=== PATIENT | female | born 1960 | race Caucasian/White ===

== ENCOUNTER 2019-02-26 13:04 | Emergency (ER) | payer OTHER ==
[~2019-02-26 13:04] MED LIST: LEVO500T89 PO; NAPR250T PO
[2019-02-26] MEDS ORDERED: ORPHENADRINE CITRATE 30 MG/ML ML ONE (13:22)
[2019-02-26] MEDS ORDERED: KETOROLAC TROMETHAMINE 15MG/ML ONE (13:23)
[2019-02-26 13:52] LABS: BASOPHILS % (AUTO) 2.7 % (0.0-5.0); EOSINOPHILS % (AUTO) 0.3 % (0.0-8.0); HEMATOCRIT 38.3 % (36-48); LYMPHOCYTES % (AUTO) 32.1 % (21.0-51.0); MEAN CORPUSCULAR HEMOGLOBIN 34.8 pg (27.0-33.0); MEAN CORPUSCULAR HGB CONC 35.2 g/dL (32.0-36.0); MONOCYTES % (AUTO) 10.7 % (3.0-13.0); NEUTROPHILS % (AUTO) 54.2 % (40.0-77.0); NUCLEATED RED BLOOD CELLS 0.1 % (0.0-0.19); PLATELET COUNT (AUTO) 77 K/uL (130-400); RED BLOOD CELL COUNT(AUTO) 3.87 MIL/uL (4.00-5.50); RED CELL DISTRIBUTION WIDTH 13.7 % (11.0-15.5)
[2019-02-26 14:00] LABS: CREATININE 0.6 mg/dL (0.5-1.5); POTASSIUM 3.5 mmol/L (3.5-5.1)
[2019-02-26 14:04] LABS: ALBUMIN 3.9 g/dL (3.5-5.0); BILIRUBIN,DIRECT 0.5 mg/dL (0.0-0.3); BILIRUBIN,TOTAL 1.3 mg/dL (0.2-1.0); TOTAL PROTEIN, SERUM 8.6 g/dL (6.0-8.3)
[2019-02-26 14:39] LABS: BAND NEUTROPHILS % (MANUAL) 1 % (0-2); BASOPHILS % (MANUAL) 2 % (0-2); LYMPHOCYTES % (MANUAL) 33 % (22-44); MAN.DIFF COMMENT-IMPRESSION MANUAL DIFFERENTIAL; MONOCYTES % (MANUAL) 13 % (2-9); PLATELET MORPHOLOGY COMMENT DECREASED; SEGMENTED NEUTROPHILS % 51 % (40-70)
== END 2019-02-26 15:28 | disposition home or self-care (01) ==
LOC: EDH 13:04
DX: M54.5 Low back pain (principal); I10 Essential (primary) hypertension; Z72.0 Tobacco use
CPT/HCPCS: 36415; 72131; 80048; 80076; 85025; 96374; 96375; 99285; J1885; J2360

== ENCOUNTER 2020-09-28 10:16 | Inpatient (IN) | payer OTHER ==
[~2020-09-28] VITALS: Ht 157.5 cm; Wt 51.3 kg
[~2020-09-28 10:16] MED LIST changes: -LEVO500T89 PO; +LEVO500T90 PO
[2020-09-28 10:54] LABS: BASOPHILS % (AUTO) 2.3 % (0.0-5.0); HEMATOCRIT 34.6 % (36-48); LYMPHOCYTES % (AUTO) 36.1 % (21.0-51.0); MEAN CORPUSCULAR HEMOGLOBIN 33.7 pg (27.0-33.0); MEAN CORPUSCULAR HGB CONC 34.1 g/dL (32.0-36.0); MEAN CORPUSCULAR VOLUME 98.9 fL (79-99); MONOCYTES % (AUTO) 11.6 % (3.0-13.0); NEUTROPHILS % (AUTO) 48.7 % (40.0-77.0); PLATELET COUNT (AUTO) 112 K/uL (130-400)
[2020-09-28 11:03] LABS: CREATININE 0.8 mg/dL (0.5-1.5); POTASSIUM 3.3 mmol/L (3.5-5.1)
[2020-09-28 11:12] LABS: ALBUMIN 2.9 g/dL (3.5-5.0); BILIRUBIN,TOTAL 4.6 mg/dL (0.2-1.0); TOTAL PROTEIN, SERUM 8.9 g/dL (6.0-8.3)
[2020-09-28 11:32] LABS: INR 1.4 (0.85-1.15); PROTHROMBIN TIME 14.8 SEC (9.6-11.6)
[2020-09-28 11:33] LABS: PARTIAL THROMBOPLASTIN TIME 31.4 SEC (26.3-35.5)
[2020-09-28] MEDS ORDERED: KETOROLAC 15MG/ML VIAL (15MG/ML) ONE (12:14)
[2020-09-28] MEDS ORDERED: IOHEXOL 350 MG/ML 100ML INFUS..BTL IV ONE (14:45)
[2020-09-28] MEDS ORDERED: IOHEXOL-350 50ML VIAL IV ONE (14:45)
[2020-09-28] MEDS ORDERED: PHARMACY COMMUNICATION MISC PRN (17:45)
[2020-09-28] MEDS ORDERED: CHLORDIAZEPOXIDE HCL 25 MG CAP PO PRN (17:45)
[2020-09-28] MEDS ORDERED: THIAMINE HCL 100 MG/ML 2ML VIAL IVP SCH (17:45)
[2020-09-28] MEDS ORDERED: FOLIC ACID 1 MG TABLET PO SCH (17:45)
[2020-09-28 18:25] LABS: ALCOHOL, BLOOD 130 mg/dL (0-10)
[2020-09-28 18:38] LABS: APPEARANCE,URINE SL CLOUDY (CLEAR); BILIRUBIN,URINE SMALL (NEGATIVE); COLOR,URINE YELLOW (YELLOW); GLUCOSE, URINE (UA) NEGATIVE (NEGATIVE); KETONES,URINE NEGATIVE (NEGATIVE); LEUKOCYTE ESTERASE ,URINE MODERATE (NEGATIVE); NITRATE,URINE NEGATIVE (NEGATIVE); OCCULT BLOOD,URINE SMALL (NEGATIVE); PROTEIN,URINE NEGATIVE (NEGATIVE)
[2020-09-28 18:46] LABS: AMPHET/METH SCREEN,URINE NEGATIVE (NEGATIVE); BACTERIA,URINE Moderate /HPF (None Seen); BARBITURATE SCREEN, URINE NEGATIVE (NEGATIVE); BENZODIAZEPINES SCREEN,URINE NEGATIVE (NEGATIVE); CANNABINOID SCREEN,URINE NEGATIVE (NEGATIVE); COCAINE SCREEN,URINE NEGATIVE (NEGATIVE); MUCUS,URINE Few LPF (None Seen); OPIATE SCREEN,URINE NEGATIVE (NEGATIVE); PHENCYCLIDINE SCREEN,URINE NEGATIVE (NEGATIVE); SQUAMOUS EPITHELIAL CELL,UR Few /HPF (0-2); URIC ACID CRYSTALS,URINE Few /LPF (None Seen)
[2020-09-28] MEDS: LACTATED RINGERS 1000ML 1,000 ML IV SCH (19:00)
[2020-09-28 19:08] LABS: ACETAMINOPHEN < 1 mcg/mL (10-30)
[2020-09-28] MEDS ORDERED: THIAMINE HCL 100 MG/ML 2ML VIAL ONE (19:23)
[2020-09-28] MEDS ORDERED: CEFTRIAXONE 1G VIAL ONE (19:23)
[2020-09-28] MEDS ORDERED: FOLIC ACID 1 MG TABLET ONE (19:23)
[2020-09-28] MEDS ORDERED: 0.9%NACL 50ML 50 ML IV ONE (19:24)
[2020-09-29 05:55] LABS: BASOPHILS % (AUTO) 1.3 % (0.0-5.0); EOSINOPHILS % (AUTO) 0.4 % (0.0-8.0); HEMATOCRIT 30.2 % (36-48); LYMPHOCYTES % (AUTO) 27.3 % (21.0-51.0); MEAN CORPUSCULAR HEMOGLOBIN 34.4 pg (27.0-33.0); MEAN CORPUSCULAR HGB CONC 34.8 g/dL (32.0-36.0); MONOCYTES % (AUTO) 13.8 % (3.0-13.0); PLATELET COUNT (AUTO) 92 K/uL (130-400); RED BLOOD CELL COUNT(AUTO) 3.05 MIL/uL (4.00-5.50); RED CELL DISTRIBUTION WIDTH 16.3 % (11.0-15.5); WHITE BLOOD COUNT (AUTO) 8.3 K/uL (4.8-10.8)
[2020-09-29 06:11] LABS: INR 1.46 (0.85-1.15); PROTHROMBIN TIME 15.4 SEC (9.6-11.6)
[2020-09-29 06:12] LABS: PARTIAL THROMBOPLASTIN TIME 33.7 SEC (26.3-35.5)
[2020-09-29 06:14] LABS: ALANINE AMINOTRANSFERASE 32 U/L (12-78); ALBUMIN 2.6 g/dL (3.5-5.0); ALCOHOL, BLOOD < 3 mg/dL (0-10); ASPARTATE AMINOTRANSFERASE 115 U/L (10-37); BILIRUBIN,TOTAL 5.2 mg/dL (0.2-1.0); CARBON DIOXIDE 24 mmol/L (21-32); CHLORIDE 101 mmol/L (101-111); CREATININE 1.6 mg/dL (0.5-1.5); GLOMERULAR FILTR. RATE CALC 35 mL/min (>60); GLUCOSE,RANDOM 85 mg/dL (70-105); POTASSIUM 3.6 mmol/L (3.5-5.1); SODIUM SERUM 135 mmol/L (136-145); TOTAL PROTEIN, SERUM 8.1 g/dL (6.0-8.3); UREA NITROGEN, BLOOD 6 mg/dL (7-18)
[2020-09-29] MEDS ORDERED: MULTIVITAMIN TABLET ONE (07:50)
[2020-09-29] MEDS ORDERED: THIAMINE HCL 100 MG/ML 2ML VIAL ONE (07:50)
[2020-09-29] MEDS ORDERED: FOLIC ACID 1 MG TABLET ONE (07:51)
[2020-09-29] MEDS: LACTATED RINGERS 1000ML 1,000 ML IV SCH ×2 (08:20→21:40)
[2020-09-29] MEDS: MULTIVITAMIN TABLET PO SCH (09:00)
[2020-09-29] MEDS: LACTULOSE 20 GM/30 ML UDCUP PO SCH ×2 (09:00→21:12)
[2020-09-29] MEDS: THIAMINE HCL 100 MG/ML 2ML VIAL IVP SCH (09:00)
[2020-09-29] MEDS: FOLIC ACID 1 MG TABLET PO SCH (09:00)
[2020-09-29] MEDS ORDERED: TRAMADOL HCL 50 MG TABLET ONE (09:05)
[2020-09-29] MEDS ORDERED: MAGNESIUM 2GM PREMIX 50ML 50 ML IV ONE (09:05)
[2020-09-29] MEDS ORDERED: LACTULOSE 20 GM/30 ML UDCUP ONE (09:05)
[2020-09-29] MEDS ORDERED: LACTATED RINGERS 1000ML 1,000 ML IV ONE (09:07)
[2020-09-29 13:33] LABS: ALBUMIN,BODY FLUID < 0.6 g/dL
[2020-09-29 13:38] LABS: CREATININE,URINE RANDOM 79 mg/dL (30-135); SODIUM,URINE RANDOM 92 mmol/l (40-220)
[2020-09-29 14:15] LABS: SPECIMENTYPE,BODY FLUID ASCITES
[2020-09-29 14:16] LABS: APPEARANCE BODY FLUID SLIGHTLY CLOUDY (CLEAR); COLOR,BODY FLUID YELLOW (LT YELLOW); TOTAL VOLUME,BODY FLUID 2500 mL
[2020-09-29 14:17] LABS: BODY FLUID RBC 182 /cu. mm.; BODY FLUID WBC 158 /cu. mm.
[2020-09-29 14:20] LABS: BF LYMPHOCYTE 35 %; BF MESOTHELIAL 2 %; BF MONOCYTE 45 %
[2020-09-29 17:45] VITALS: BP 102/67
[2020-09-29] MEDS: CEFTRIAXONE 1G VIAL IVP SCH (18:34)
[2020-09-29] MEDS: KCL 20 MEQ ERTAB PO SCH (18:35)
[2020-09-29] MEDS ORDERED: AMLO-258 PO (18:58)
[2020-09-29 19:50] VITALS: BP 110/55
[2020-09-29] MEDS: TRAMADOL HCL 50 MG TABLET PO PRN (22:02)
[2020-09-29 23:02] VITALS: BP 112/54
[2020-09-30] VITALS (12 sets, daily range): BP systolic 113–143; BP diastolic 49–79
[2020-09-30] MEDS: LACTATED RINGERS 1000ML 1,000 ML IV SCH (05:45)
[2020-09-30 05:55] LABS: HEMATOCRIT 33.6 % (36-48); MEAN CORPUSCULAR HGB CONC 33.9 g/dL (32.0-36.0); MEAN CORPUSCULAR VOLUME 100.3 fL (79-99); PLATELET COUNT (AUTO) 99 K/uL (130-400); RED BLOOD CELL COUNT(AUTO) 3.35 MIL/uL (4.00-5.50); RED CELL DISTRIBUTION WIDTH 15.9 % (11.0-15.5); WHITE BLOOD COUNT (AUTO) 7.9 K/uL (4.8-10.8)
[2020-09-30 05:59] LABS: CREATININE 0.8 mg/dL (0.5-1.5); PHOSPHORUS 3.2 mg/dL (2.5-4.9); POTASSIUM 3.2 mmol/L (3.5-5.1)
[2020-09-30 06:29] LABS: BAND NEUTROPHILS % (MANUAL) 5 % (0-2); BASOPHILS % (MANUAL) 2 % (0-2); EOSINOPHILS % (MANUAL) 1 % (1-6); LYMPHOCYTES % (MANUAL) 24 % (22-44); MAN.DIFF COMMENT-IMPRESSION MANUAL DIFFERENTIAL; MONOCYTES % (MANUAL) 7 % (2-9); PLATELET MORPHOLOGY COMMENT DECREASED; SEGMENTED NEUTROPHILS % 61 % (40-70)
[2020-09-30] MEDS ORDERED: POTASSIUM CHLORIDE 20MEQ/100ML 100 ML IV PRN ×2 (10:00)
[2020-09-30] MEDS ORDERED: POTASSIUM CHLORIDE 10% ELIXIR 20 MEQ/15 ML UDCUP PO PRN (10:00)
[2020-09-30] MEDS ORDERED: LIDOCAINE HCL-MPF 1% 2ML VIAL IV PRN ×2 (10:00)
[2020-09-30] MEDS: LACTULOSE 20 GM/30 ML UDCUP PO SCH ×2 (10:14→20:38)
[2020-09-30] MEDS: KCL 20 MEQ ERTAB PO PRN ×3 (10:14→14:37)
[2020-09-30] MEDS: MULTIVITAMIN TABLET PO SCH (10:34)
[2020-09-30] MEDS: FOLIC ACID 1 MG TABLET PO SCH (10:34)
[2020-09-30] MEDS: THIAMINE HCL 100 MG/ML 2ML VIAL IVP SCH (10:38)
[2020-09-30 15:15] LABS: MAGNESIUM 1.7 mg/dL (1.80-2.40)
[2020-09-30] MEDS: MAGNESIUM 2GM PREMIX 50ML 50 ML IV SCH (15:44)
[2020-09-30] MEDS: KCL 20 MEQ ERTAB PO SCH (17:45)
[2020-09-30] MEDS: CEFTRIAXONE 1G VIAL IVP SCH (18:32)
[2020-09-30] MEDS: TRAMADOL HCL 50 MG TABLET PO PRN (20:41)
[2020-09-30 21:07] LABS: HEPATITIS A ANTIBODY IGM Negative (Negative); HEPATITIS B CORE IGM Negative (Negative); HEPATITIS Bs ANTIGEN SCREEN P Negative (Negative)
[2020-10-01 03:07] VITALS: BP 113/65
[2020-10-01 06:44] LABS: BASOPHILS % (AUTO) 1.2 % (0.0-5.0); EOSINOPHILS % (AUTO) 1.8 % (0.0-8.0); HEMATOCRIT 30.5 % (36-48); LYMPHOCYTES % (AUTO) 25.9 % (21.0-51.0); MEAN CORPUSCULAR HEMOGLOBIN 33.9 pg (27.0-33.0); MEAN CORPUSCULAR HGB CONC 33.4 g/dL (32.0-36.0); MEAN CORPUSCULAR VOLUME 101.3 fL (79-99); MONOCYTES % (AUTO) 12.9 % (3.0-13.0); NEUTROPHILS % (AUTO) 58.1 % (40.0-77.0); PLATELET COUNT (AUTO) 83 K/uL (130-400); RED BLOOD CELL COUNT(AUTO) 3.01 MIL/uL (4.00-5.50); RED CELL DISTRIBUTION WIDTH 15.9 % (11.0-15.5); WHITE BLOOD COUNT (AUTO) 6.8 K/uL (4.8-10.8)
[2020-10-01 07:07] LABS: ALBUMIN 2.3 g/dL (3.5-5.0); BILIRUBIN,TOTAL 3.7 mg/dL (0.2-1.0); CREATININE 0.7 mg/dL (0.5-1.5); MAGNESIUM 1.6 mg/dL (1.80-2.40); POTASSIUM 3.5 mmol/L (3.5-5.1); TOTAL PROTEIN, SERUM 7.4 g/dL (6.0-8.3)
[2020-10-01 07:40] VITALS: BP 115/61
[2020-10-01] MEDS: LACTULOSE 20 GM/30 ML UDCUP PO SCH (08:41)
[2020-10-01] MEDS: KCL 20 MEQ ERTAB PO SCH (08:42)
[2020-10-01] MEDS: MULTIVITAMIN TABLET PO SCH (08:43)
[2020-10-01] MEDS: THIAMINE HCL 100 MG/ML 2ML VIAL IVP SCH (08:43)
[2020-10-01] MEDS: MAGNESIUM 2GM PREMIX 50ML 50 ML IV SCH (08:43)
[2020-10-01] MEDS: FOLIC ACID 1 MG TABLET PO SCH (08:43)
[2020-10-01] MEDS: TRAMADOL HCL 50 MG TABLET PO PRN (08:49)
[2020-10-01] MEDS: KCL 20 MEQ ERTAB PO PRN ×2 (09:03→10:26)
[2020-10-01 11:30] VITALS: BP 123/75
[2020-10-01] MEDS ORDERED: FOLI0.4T6 PO (14:51)
[2020-10-01] MEDS ORDERED: CYAN250014 PO (14:51)
[2020-10-01] MEDS ORDERED: LACT10SO9 PO (14:52)
[2020-10-01] MEDS ORDERED: CEPH500B PO (14:52)
[2020-10-01] MEDS ORDERED: MAGN400T56 PO (14:53)
[2020-10-01 15:40] VITALS: BP 127/71
[2020-10-03 14:09] LABS: CHLAMYDIA DNA N.A.AMPLIFY Negative (Negative)
[2021-02-28] MEDS ORDERED: GABA-529 PO (06:56)
== END 2020-10-01 16:10 | disposition home or self-care (01) | DRG 598 ==
LOC: EDH 10:16 → EDHIP 10:17 → OBSVTOIN 10:17 → WSH 09-29 17:45
PROVIDERS: ADMIT Internal Medicine; ATTEND Internal Medicine
PROC: 0W9G3ZZ Drainage of Peritoneal Cavity, Percutaneous Approach (ICD-10-PCS; principal; 2020-09-29)
PROC: 0HBU3ZX Excision of Left Breast, Percutaneous Approach, Diagnostic (ICD-10-PCS; 2020-09-30)
DX: C50.912 Malignant neoplasm of unspecified site of left female breast (principal); R18.8 Other ascites; N17.9 Acute kidney failure, unspecified; K74.60 Unspecified cirrhosis of liver; D64.9 Anemia, unspecified; E83.42 Hypomagnesemia; E87.6 Hypokalemia; I10 Essential (primary) hypertension; N14.1 Nephropathy induced by other drugs, medicaments and biological substances; T50.8X5A Adverse effect of diagnostic agents, initial encounter; Z80.3 Family history of malignant neoplasm of breast; Z82.0 Family history of epilepsy and other diseases of the nervous system; Z82.3 Family history of stroke; Z82.49 Family history of ischemic heart disease and other diseases of the circulatory system; Z83.3 Family history of diabetes mellitus; Z98.51 Tubal ligation status; Y92.89 Other specified places as the place of occurrence of the external cause
CPT/HCPCS: 19083; 36415; 49083; 71045; 71275; 74177; 76705; 76942; 80048; 80053; 80074; 80305; 81001; 82042; 82140; 82570; 83615; 83735; 84100; 84157; 84300; 84484; 85025; 85610; 85730; 86701; 87071; 87077; 87088; 87186; 87205; 87390; 87486; 87797; 88112; 88305; 88341; 88342; 88360; 89051; 93005; C1729; G0378; J0696; J1885; J3411; J3475; J7120; Q9967

== ENCOUNTER 2020-12-16 17:04 | Emergency (ER) | payer MEDICAID, OTHER ==
[~2020-12-16 17:04] MED LIST changes: +CEPH500B PO; +CYAN250014 PO; +FOLI0.4T6 PO; +LACT10SO9 PO; -LEVO500T90 PO; +MAGN400T8 PO; -NAPR250T PO
[2020-12-16 18:19] LABS: BASOPHILS % (AUTO) 1.3 % (0.0-5.0); EOSINOPHILS % (AUTO) 0.7 % (0.0-8.0); HEMATOCRIT 27.2 % (36-48); LYMPHOCYTES % (AUTO) 20.5 % (21.0-51.0); MEAN CORPUSCULAR HEMOGLOBIN 35.9 pg (27.0-33.0); MEAN CORPUSCULAR HGB CONC 34.2 g/dL (32.0-36.0); MONOCYTES % (AUTO) 17.1 % (3.0-13.0); NEUTROPHILS % (AUTO) 59.7 % (40.0-77.0); PLATELET COUNT (AUTO) 121 K/uL (130-400); RED BLOOD CELL COUNT(AUTO) 2.59 MIL/uL (4.00-5.50); RED CELL DISTRIBUTION WIDTH 15.3 % (11.0-15.5); WHITE BLOOD COUNT (AUTO) 6.9 K/uL (4.8-10.8)
[2020-12-16 18:30] LABS: ALBUMIN 2.6 g/dL (3.5-5.0); CREATININE 0.8 mg/dL (0.5-1.5); POTASSIUM 3.7 mmol/L (3.5-5.1)
[2020-12-16 18:32] LABS: INR 1.47 (0.85-1.15); PARTIAL THROMBOPLASTIN TIME 27.5 SEC (26.3-35.5); PROTHROMBIN TIME 14.9 SEC (9.6-11.6)
[2020-12-16 18:40] LABS: APPEARANCE,URINE CLOUDY (CLEAR); BILIRUBIN,URINE SMALL (NEGATIVE); COLOR,URINE YELLOW (YELLOW); GLUCOSE, URINE (UA) NEGATIVE (NEGATIVE); KETONES,URINE NEGATIVE (NEGATIVE); LEUKOCYTE ESTERASE ,URINE LARGE (NEGATIVE); NITRATE,URINE NEGATIVE (NEGATIVE); OCCULT BLOOD,URINE LARGE (NEGATIVE); PROTEIN,URINE TRACE mg/dL (NEGATIVE)
[2020-12-16 18:45] LABS: BILIRUBIN,TOTAL 5.1 mg/dL (0.2-1.0); TOTAL PROTEIN, SERUM 8.1 g/dL (6.0-8.3)
[2020-12-16 19:01] LABS: WBC,URINE >100 /HPF (0-1)
[2020-12-16 19:02] LABS: BACTERIA,URINE Few /HPF (None Seen); SQUAMOUS EPITHELIAL CELL,UR Few /HPF (0-2)
[2020-12-16] MEDS ORDERED: PHENAZOPYRIDINE HCL 200 MG TABLET ONE (20:02)
[2020-12-16] MEDS ORDERED: CEFTRIAXONE SODIUM 1 GM ONE (20:02)
[2020-12-16] MEDS ORDERED: HYDROCODONE/ACETAMINOPHEN 10/325 MG TAB ONE (20:02)
== END 2020-12-16 21:00 | disposition home or self-care (01) ==
LOC: EDH 17:04
DX: N30.01 Acute cystitis with hematuria (principal); D64.9 Anemia, unspecified; E87.1 Hypo-osmolality and hyponatremia; I10 Essential (primary) hypertension
CPT/HCPCS: 36415; 74176; 80053; 81001; 82270; 83690; 85025; 85610; 85730; 87088; 96365; 99284; J0696

== ENCOUNTER 2020-12-27 12:12 | Inpatient (IN) | payer MEDICAID ==
[~2020-12-27] VITALS: Ht 157.5 cm; Wt 56.8 kg
[2020-12-27 12:47] LABS: BASOPHILS % (AUTO) 1.4 % (0.0-5.0); EOSINOPHILS % (AUTO) 0.5 % (0.0-8.0); HEMATOCRIT 24.4 % (36-48); LYMPHOCYTES % (AUTO) 24.1 % (21.0-51.0); MEAN CORPUSCULAR HEMOGLOBIN 35.8 pg (27.0-33.0); MEAN CORPUSCULAR VOLUME 105.2 fL (79-99); NEUTROPHILS % (AUTO) 54.5 % (40.0-77.0); PLATELET COUNT (AUTO) 141 K/uL (130-400); RED BLOOD CELL COUNT(AUTO) 2.32 MIL/uL (4.00-5.50); RED CELL DISTRIBUTION WIDTH 14.6 % (11.0-15.5); WHITE BLOOD COUNT (AUTO) 5.5 K/uL (4.8-10.8)
[2020-12-27 13:05] LABS: POTASSIUM 3.7 mmol/L (3.5-5.1)
[2020-12-27 13:10] LABS: ALBUMIN 2.4 g/dL (3.5-5.0); BILIRUBIN,TOTAL 4.3 mg/dL (0.2-1.0); INR 1.6 (0.85-1.15); PROTHROMBIN TIME 16.7 SEC (9.6-11.6); TOTAL PROTEIN, SERUM 7.4 g/dL (6.0-8.3)
[2020-12-27 13:12] LABS: PARTIAL THROMBOPLASTIN TIME 31.3 SEC (26.3-35.5)
[2020-12-27] MEDS ORDERED: MORPHINE SULFATE 2 MG/ML 1ML SYG ONE (14:59)
[2020-12-27 15:33] LABS: APPEARANCE,URINE CLOUDY (CLEAR); BILIRUBIN,URINE SMALL (NEGATIVE); COLOR,URINE RED (YELLOW); GLUCOSE, URINE (UA) NEGATIVE (NEGATIVE); KETONES,URINE NEGATIVE (NEGATIVE); LEUKOCYTE ESTERASE ,URINE LARGE (NEGATIVE); NITRATE,URINE NEGATIVE (NEGATIVE); OCCULT BLOOD,URINE LARGE (NEGATIVE); PROTEIN,URINE 100 mg/dL (NEGATIVE)
[2020-12-27 15:52] LABS: RBC,URINE Full Field /HPF (0-1)
[2020-12-27 15:53] LABS: BACTERIA,URINE Few /HPF (None Seen); SQUAMOUS EPITHELIAL CELL,UR 0-2 /HPF (0-2)
[2020-12-27] MEDS ORDERED: PANTOPRAZOLE 40 MG/VIAL IV SCH (17:00)
[2020-12-27] MEDS ORDERED: OCTREOTIDE ACETATE 100 MCG/ML AMP IV SCH (17:00)
[2020-12-27] MEDS: CEFTRIAXONE SODIUM 1 GM IVP SCH (17:15)
[2020-12-27 18:15] LABS: HEMATOCRIT 23.6 % (36-48)
[2020-12-27] MEDS ORDERED: SODIUM CHLORIDE 0.9% 100 ML IV ONE (18:28)
[2020-12-27] MEDS ORDERED: PANTOPRAZOLE 40 MG/VIAL ONE (18:39)
[2020-12-27] MEDS ORDERED: OCTREOTIDE ACETATE 100 MCG/ML AMP ONE (18:41)
[2020-12-27] MEDS ORDERED: CEFTRIAXONE SODIUM 1 GM ONE (18:54)
[2020-12-27] MEDS ORDERED: SODIUM CHLORIDE 0.9% 1000ML 1,000 ML IV ONE (21:23)
[2020-12-28] VITALS (13 sets, daily range): BP systolic 95–110; BP diastolic 47–63
[2020-12-28] MEDS ORDERED: SODIUM CHLORIDE 0.9% 50 ML IV ONE (03:46)
[2020-12-28] MEDS ORDERED: PANTOPRAZOLE 40 MG/VIAL ONE (03:47)
[2020-12-28] MEDS ORDERED: SPIR50TA5 PO (04:33)
[2020-12-28] MEDS ORDERED: AMLO-258 PO (04:33)
[2020-12-28] MEDS ORDERED: CEPH500B PO (04:33)
[2020-12-28 06:18] LABS: HEMATOCRIT 32.1 % (36-48)
[2020-12-28 06:32] LABS: CREATININE 0.8 mg/dL (0.5-1.5); POTASSIUM 4.3 mmol/L (3.5-5.1)
[2020-12-28] MEDS ORDERED: ACETAMINOPHEN-CODEINE 300/30MG TAB PO SCH (09:30)
[2020-12-28 10:42] LABS: HEMATOCRIT 31.9 % (36-48)
[2020-12-28] MEDS: CEFTRIAXONE SODIUM 1 GM IVP SCH (16:27)
[2020-12-28] MEDS ORDERED: ALBUMIN (HUMAN) 25% 100 ML IV ONE (17:30)
[2020-12-28 17:33] LABS: SPECIMENTYPE,BODY FLUID ASCITES
[2020-12-28 17:34] LABS: APPEARANCE BODY FLUID SLIGHTLY CLOUDY (CLEAR); BODY FLUID WBC 81 /cu. mm.; COLOR,BODY FLUID YELLOW (LT YELLOW); TOTAL VOLUME,BODY FLUID 4700 mL
[2020-12-28 17:35] LABS: BODY FLUID RBC 181 /cu. mm.
[2020-12-28 18:30] LABS: BF LYMPHOCYTE 26 %; BF MESOTHELIAL 1 %; BF MONOCYTE 3 %; BF OTHER CELLS 11
[2020-12-28] MEDS ORDERED: ACETAMINOPHEN-CODEINE 300/30MG TAB PO ONE (21:45)
[2020-12-28 22:47] LABS: HEMATOCRIT 28.3 % (36-48)
[2020-12-28] MEDS: PANTOPRAZOLE SODIUM 80 MG in SODIUM CHLORIDE 0.9% 100 ML IVP SCH (23:27)
[2020-12-29] VITALS (7 sets, daily range): BP systolic 96–111; BP diastolic 51–60
[2020-12-29 04:47] LABS: HEMATOCRIT 29.1 % (36-48)
[2020-12-29 05:31] LABS: ALBUMIN 2.3 g/dL (3.5-5.0); BILIRUBIN,TOTAL 4.5 mg/dL (0.2-1.0); CREATININE 0.8 mg/dL (0.5-1.5); POTASSIUM 4.1 mmol/L (3.5-5.1); TOTAL PROTEIN, SERUM 6.1 g/dL (6.0-8.3)
[2020-12-29 10:29] LABS: HEMATOCRIT 30.8 % (36-48)
[2020-12-29] MEDS: PANTOPRAZOLE SODIUM 80 MG in SODIUM CHLORIDE 0.9% 100 ML IVP SCH ×2 (11:01→22:40)
[2020-12-29] MEDS: OCTREOTIDE ACETATE 1,250 MCG in SODIUM CHLORIDE 0.9% 250 ML IV SCH ×2 (11:14→22:39)
[2020-12-29 16:43] LABS: HEMATOCRIT 29.9 % (36-48)
[2020-12-29] MEDS: CEFTRIAXONE SODIUM 1 GM IVP SCH (17:50)
[2020-12-29] MEDS ORDERED: IOHEXOL-350 75 ML VIAL IV ONE (22:45)
[2020-12-29 23:08] LABS: HEMATOCRIT 28.8 % (36-48)
[2020-12-30] VITALS (17 sets, daily range): BP systolic 90–110; BP diastolic 50–60
[2020-12-30 04:45] LABS: HEMATOCRIT 29.5 % (36-48)
[2020-12-30] MEDS ORDERED: PROPOFOL 10 MG/ML 20ML VIAL IV ONE (08:07)
[2020-12-30] MEDS: PANTOPRAZOLE SODIUM 80 MG in SODIUM CHLORIDE 0.9% 100 ML IVP SCH (09:41)
[2020-12-30] MEDS: CEFTRIAXONE SODIUM 1 GM IVP SCH (16:22)
[2020-12-30] MEDS: ACETAMINOPHEN-CODEINE 300/30MG TAB PO PRN (20:37)
[2020-12-31] VITALS (23 sets, daily range): BP systolic 90–102; BP diastolic 50–58
[2020-12-31] MEDS: PANTOPRAZOLE SODIUM 80 MG in SODIUM CHLORIDE 0.9% 100 ML IVP SCH ×2 (02:07→17:35)
[2020-12-31 05:18] LABS: BASOPHILS % (AUTO) 1.2 % (0.0-5.0); EOSINOPHILS % (AUTO) 2.2 % (0.0-8.0); HEMATOCRIT 25.1 % (36-48); LYMPHOCYTES % (AUTO) 40.7 % (21.0-51.0); MEAN CORPUSCULAR HEMOGLOBIN 33.2 pg (27.0-33.0); MEAN CORPUSCULAR HGB CONC 33.9 g/dL (32.0-36.0); MONOCYTES % (AUTO) 16.8 % (3.0-13.0); NEUTROPHILS % (AUTO) 38.7 % (40.0-77.0); PLATELET COUNT (AUTO) 85 K/uL (130-400); RED BLOOD CELL COUNT(AUTO) 2.56 MIL/uL (4.00-5.50); RED CELL DISTRIBUTION WIDTH 17.1 % (11.0-15.5); WHITE BLOOD COUNT (AUTO) 5.1 K/uL (4.8-10.8)
[2020-12-31 05:35] LABS: CREATININE 0.9 mg/dL (0.5-1.5); POTASSIUM 4.3 mmol/L (3.5-5.1)
[2020-12-31] MEDS ORDERED: LACTATED RINGERS 1000ML 1,000 ML IV ONE (06:23)
[2020-12-31] MEDS ORDERED: LIDOCAINE PF 2% 5ML ABBOJECT ONE ×2 (06:51→14:21)
[2020-12-31] MEDS ORDERED: ONDANSETRON HCL 4 MG/2 ML VIAL ONE (06:51)
[2020-12-31] MEDS ORDERED: SUCCINYLCHOLINE 200MG/10ML SYR ONE (06:51)
[2020-12-31] MEDS ORDERED: GLYCOPYRROLATE 1 MG/5 ML SYRINGE ONE (06:51)
[2020-12-31] MEDS ORDERED: DEXAMETHASONE SOD PHOSPHATE 10MG/ML 1ML VIAL ONE (06:51)
[2020-12-31] MEDS ORDERED: MIDAZOLAM HCL 1 MG/ML 2ML VIAL ONE (06:51)
[2020-12-31] MEDS ORDERED: NEOSTIGMINE 5MG/5ML SYR IV ONE (06:52)
[2020-12-31] MEDS ORDERED: PROPOFOL 10 MG/ML 20ML VIAL IV ONE ×2 (06:52→14:21)
[2020-12-31] MEDS ORDERED: FENTANYL CITRATE PF 50 MCG/1 ML 2ML VIAL ONE ×2 (06:52→14:21)
[2020-12-31] MEDS ORDERED: ROCURONIUM 10MG/1ML SYR 10 MG/ML ML ONE (06:52)
[2020-12-31] MEDS ORDERED: MEPERIDINE-PF 25 MG/ML SYG ONE (14:21)
[2020-12-31] MEDS ORDERED: IOHEXOL-350 50ML VIAL IV ONE (14:36)
[2020-12-31] MEDS: CEFTRIAXONE SODIUM 1 GM IVP SCH (16:53)
[2020-12-31] MEDS ORDERED: COMPOUND IV REFRIGERATED 1 EACH MISC ONE (17:29)
[2020-12-31] MEDS: OCTREOTIDE ACETATE 1,250 MCG in SODIUM CHLORIDE 0.9% 250 ML IV SCH (17:35)
[2021-01-01 00:40] VITALS: BP 94/54
[2021-01-01 04:13] VITALS: BP 100/63
[2021-01-01] MEDS ORDERED: PANTOPRAZOLE 40 MG/VIAL ONE (04:18)
[2021-01-01 05:50] LABS: BASOPHILS % (AUTO) 0.2 % (0.0-5.0); HEMATOCRIT 27.8 % (36-48); LYMPHOCYTES % (AUTO) 15.8 % (21.0-51.0); MEAN CORPUSCULAR HEMOGLOBIN 33.1 pg (27.0-33.0); MEAN CORPUSCULAR HGB CONC 34.2 g/dL (32.0-36.0); MEAN CORPUSCULAR VOLUME 96.9 fL (79-99); MONOCYTES % (AUTO) 1.7 % (3.0-13.0); NEUTROPHILS % (AUTO) 81.6 % (40.0-77.0); PLATELET COUNT (AUTO) 95 K/uL (130-400); RED BLOOD CELL COUNT(AUTO) 2.87 MIL/uL (4.00-5.50); WHITE BLOOD COUNT (AUTO) 6.1 K/uL (4.8-10.8)
[2021-01-01 06:34] LABS: POTASSIUM 4.2 mmol/L (3.5-5.1)
[2021-01-01] MEDS ORDERED: PEG 3350/NA SULF,BICARB,CL/KCL 4000 ML SOLN PO SCH (07:30)
[2021-01-01 07:55] VITALS: BP 90/48
[2021-01-01 11:54] VITALS: BP 92/48
[2021-01-01] MEDS: PANTOPRAZOLE SODIUM 80 MG in SODIUM CHLORIDE 0.9% 100 ML IVP SCH (15:57)
[2021-01-01 16:00] VITALS: BP 93/50
[2021-01-01] MEDS: MIDODRINE HCL 5 MG TABLET PO SCH ×2 (16:16→20:54)
[2021-01-01] MEDS: CEFTRIAXONE SODIUM 1 GM IVP SCH (16:16)
[2021-01-01 20:20] VITALS: BP 104/48
[2021-01-02] VITALS (18 sets, daily range): BP systolic 87–106; BP diastolic 38–60
[2021-01-02 07:37] LABS: BASOPHILS % (AUTO) 0.1 % (0.0-5.0); LYMPHOCYTES % (AUTO) 13.2 % (21.0-51.0); MEAN CORPUSCULAR HEMOGLOBIN 33.5 pg (27.0-33.0); MEAN CORPUSCULAR HGB CONC 33.9 g/dL (32.0-36.0); MEAN CORPUSCULAR VOLUME 98.6 fL (79-99); MONOCYTES % (AUTO) 6.4 % (3.0-13.0); NEUTROPHILS % (AUTO) 79.8 % (40.0-77.0); PLATELET COUNT (AUTO) 128 K/uL (130-400); RED BLOOD CELL COUNT(AUTO) 2.84 MIL/uL (4.00-5.50); RED CELL DISTRIBUTION WIDTH 16.6 % (11.0-15.5); WHITE BLOOD COUNT (AUTO) 14.1 K/uL (4.8-10.8)
[2021-01-02 07:51] LABS: CREATININE 1.1 mg/dL (0.5-1.5); POTASSIUM 3.9 mmol/L (3.5-5.1)
[2021-01-02] MEDS: MIDODRINE HCL 5 MG TABLET PO SCH ×2 (09:24→19:57)
[2021-01-02] MEDS ORDERED: MIDAZOLAM HCL 1 MG/ML 2ML VIAL ONE (11:15)
[2021-01-02] MEDS ORDERED: PROPOFOL 10 MG/ML 20ML VIAL IV ONE (11:15)
[2021-01-02] MEDS: CEFTRIAXONE SODIUM 1 GM IVP SCH (18:04)
[2021-01-02] MEDS: ACETAMINOPHEN-CODEINE 300/30MG TAB PO PRN (19:58)
[2021-01-03 00:33] VITALS: BP 101/45
[2021-01-03 04:04] VITALS: BP 99/49
[2021-01-03 07:02] LABS: BASOPHILS % (AUTO) 0.1 % (0.0-5.0); EOSINOPHILS % (AUTO) 0.1 % (0.0-8.0); HEMATOCRIT 27.2 % (36-48); LYMPHOCYTES % (AUTO) 26.6 % (21.0-51.0); MEAN CORPUSCULAR HEMOGLOBIN 33.3 pg (27.0-33.0); MEAN CORPUSCULAR HGB CONC 33.5 g/dL (32.0-36.0); MEAN CORPUSCULAR VOLUME 99.6 fL (79-99); MONOCYTES % (AUTO) 12.3 % (3.0-13.0); NEUTROPHILS % (AUTO) 60.5 % (40.0-77.0); PLATELET COUNT (AUTO) 117 K/uL (130-400); RED BLOOD CELL COUNT(AUTO) 2.73 MIL/uL (4.00-5.50); RED CELL DISTRIBUTION WIDTH 16.9 % (11.0-15.5)
[2021-01-03 07:09] LABS: CREATININE 0.9 mg/dL (0.5-1.5)
[2021-01-03 08:00] VITALS: BP 94/46
[2021-01-03] MEDS: MIDODRINE HCL 5 MG TABLET PO SCH (08:24)
[2021-01-03] MEDS ORDERED: PANTOPRAZOLE SODIUM 40 MG TABLET.DR PO SCH (09:00)
[2021-01-03] MEDS ORDERED: CEFTRIAXONE SODIUM 1 GM IVP SCH (09:00)
[2021-01-03 12:10] VITALS: BP 104/58
[2021-01-03] MEDS: ACETAMINOPHEN-CODEINE 300/30MG TAB PO PRN (15:15)
[2021-01-03 16:00] VITALS: BP 100/48
[2021-01-03] MEDS ORDERED: PHYTONADIONE 10 MG/1 ML AMP IM SCH (18:00)
[2021-01-03] MEDS ORDERED: Midodrine Hcl PO (18:01)
[2021-01-03] MEDS ORDERED: PANT40TA PO (18:01)
[2021-01-03 19:58] VITALS: BP 133/61
== END 2021-01-03 20:05 | disposition home or self-care (01) | DRG 241 ==
LOC: EDH 12:12 → EDHIP 12:13 → 4CH 12-28 03:06
PROVIDERS: ADMIT Internal Medicine; ATTEND Internal Medicine
PROC: 30233N1 Transfusion of Nonautologous Red Blood Cells into Peripheral Vein, Percutaneous Approach (ICD-10-PCS; principal; 2020-12-27)
PROC: 0W9G3ZZ Drainage of Peritoneal Cavity, Percutaneous Approach (ICD-10-PCS; 2020-12-28)
PROC: 0DB68ZX Excision of Stomach, Via Natural or Artificial Opening Endoscopic, Diagnostic (ICD-10-PCS; 2020-12-30)
PROC: BT141ZZ Fluoroscopy of Kidneys, Ureters and Bladder using Low Osmolar Contrast (ICD-10-PCS; 2020-12-31)
PROC: 0TJB8ZZ Inspection of Bladder, Via Natural or Artificial Opening Endoscopic (ICD-10-PCS; 2020-12-31)
PROC: 0DBM8ZZ Excision of Descending Colon, Via Natural or Artificial Opening Endoscopic (ICD-10-PCS; 2021-01-02)
PROC: 0DBL8ZZ Excision of Transverse Colon, Via Natural or Artificial Opening Endoscopic (ICD-10-PCS; 2021-01-02)
DX: K29.71 Gastritis, unspecified, with bleeding (principal); J90 Pleural effusion, not elsewhere classified; D68.9 Coagulation defect, unspecified; K76.6 Portal hypertension; K57.31 Diverticulosis of large intestine without perforation or abscess with bleeding; C50.919 Malignant neoplasm of unspecified site of unspecified female breast; D62 Acute posthemorrhagic anemia; K70.31 Alcoholic cirrhosis of liver with ascites; K25.4 Chronic or unspecified gastric ulcer with hemorrhage; I85.10 Secondary esophageal varices without bleeding; N39.0 Urinary tract infection, site not specified; B96.20 Unspecified Escherichia coli [E. coli] as the cause of diseases classified elsewhere; D50.9 Iron deficiency anemia, unspecified; R31.0 Gross hematuria; F10.10 Alcohol abuse, uncomplicated; I10 Essential (primary) hypertension; K59.00 Constipation, unspecified; K63.5 Polyp of colon; K64.8 Other hemorrhoids; N28.89 Other specified disorders of kidney and ureter; K64.1 Second degree hemorrhoids; Z98.51 Tubal ligation status; Z85.528 Personal history of other malignant neoplasm of kidney; Z87.891 Personal history of nicotine dependence; Z85.3 Personal history of malignant neoplasm of breast; Z91.19 Patient's noncompliance with other medical treatment and regimen; Z83.3 Family history of diabetes mellitus; Z82.3 Family history of stroke; Z80.3 Family history of malignant neoplasm of breast; Z82.0 Family history of epilepsy and other diseases of the nervous system; Z82.49 Family history of ischemic heart disease and other diseases of the circulatory system
CPT/HCPCS: 36415; 43239; 45380; 45385; 49083; 71045; 74176; 74178; 74420; 76856; 80048; 80053; 81001; 82270; 82948; 83880; 84703; 85014; 85018; 85025; 85610; 85730; 86850; 86900; 86901; 86923; 87071; 87076; 87077; 87088; 87186; 87205; 89051; A4344; A4354; A4606; C1758; C9113; G0378; J0330; J0696; J1100; J2001; J2175; J2250; J2354; J2405; J2704; J2710; J3010; J3430; J3490; J7030; J7050; J7120; P9016; P9046; Q9967

== ENCOUNTER → 2021-01-26 | Outpatient (CLI) | payer MEDICAID ==
[~2021-01-26] MED LIST changes: +ALBUMIN (HUMAN) 25% 200 ML IV SCH; -CYAN250014 PO; -FOLI0.4T6 PO; +GABA-529 PO; -LACT10SO9 PO; -MAGN400T8 PO; +Midodrine Hcl PO; +PANT40TA PO; +SPIR50TA5 PO
[2021-01-26 10:16] LABS: BASOPHILS % (AUTO) 1.3 % (0.0-5.0); EOSINOPHILS % (AUTO) 0.7 % (0.0-8.0); HEMATOCRIT 26.3 % (36-48); LYMPHOCYTES % (AUTO) 36.6 % (21.0-51.0); MEAN CORPUSCULAR HEMOGLOBIN 34.5 pg (27.0-33.0); MEAN CORPUSCULAR HGB CONC 34.2 g/dL (32.0-36.0); MEAN CORPUSCULAR VOLUME 100.8 fL (79-99); MONOCYTES % (AUTO) 18.6 % (3.0-13.0); NEUTROPHILS % (AUTO) 42.4 % (40.0-77.0); PLATELET COUNT (AUTO) 109 K/uL (130-400); RED BLOOD CELL COUNT(AUTO) 2.61 MIL/uL (4.00-5.50); RED CELL DISTRIBUTION WIDTH 17.8 % (11.0-15.5); WHITE BLOOD COUNT (AUTO) 5.4 K/uL (4.8-10.8)
[2021-01-26 10:30] LABS: INR 1.47 (0.85-1.15); PROTHROMBIN TIME 15.5 SEC (9.6-11.6)
[2021-01-26 10:34] LABS: ALBUMIN 2.4 g/dL (3.5-5.0); POTASSIUM 4.1 mmol/L (3.5-5.1); TOTAL PROTEIN, SERUM 7.5 g/dL (6.0-8.3)
[2021-01-26 13:12] LABS: SPECIMENTYPE,BODY FLUID ASCITES
[2021-01-26 13:13] LABS: APPEARANCE BODY FLUID CLEAR (CLEAR); BODY FLUID RBC 160 /cu. mm.; BODY FLUID WBC 93 /cu. mm.; COLOR,BODY FLUID YELLOW (LT YELLOW); TOTAL VOLUME,BODY FLUID 6300 mL
[2021-01-26 13:15] LABS: ALBUMIN,BODY FLUID < 0.6 g/dL
[2021-01-26 13:41] LABS: BF LYMPHOCYTE 44 %; BF MESOTHELIAL 48 %; BF MONOCYTE 6 %
== END | disposition home or self-care (01) ==
LOC: RAH 09:29
PROVIDERS: ATTEND Internal Medicine Gastroenterology
DX: K70.31 Alcoholic cirrhosis of liver with ascites (principal); I10 Essential (primary) hypertension; D50.9 Iron deficiency anemia, unspecified; Z98.51 Tubal ligation status; Z85.528 Personal history of other malignant neoplasm of kidney; Z87.891 Personal history of nicotine dependence; Z85.3 Personal history of malignant neoplasm of breast; Z82.0 Family history of epilepsy and other diseases of the nervous system; Z82.3 Family history of stroke; Z83.3 Family history of diabetes mellitus; Z82.49 Family history of ischemic heart disease and other diseases of the circulatory system
CPT/HCPCS: 36415; 49083; 80053; 82042; 84157; 85025; 85610; 87071; 87205; 88112; 88305; 88341; 88342; 89051; A4215

== ENCOUNTER 2021-03-15 14:38 | Emergency (ER) | payer MEDICAID ==
[~2021-03-15 14:38] MED LIST changes: -ALBUMIN (HUMAN) 25% 200 ML IV SCH; -CEPH500B PO; -SPIR50TA5 PO
[2021-03-15 14:42] VITALS: BP 119/61
[2021-03-15] MEDS ORDERED: 0.9%NACL 1000ML 1,000 ML IV SCH (15:00)
[2021-03-15] MEDS ORDERED: ACETAMINOPHEN 500 MG TABLET PO ONE (15:00)
[2021-03-15 15:18] LABS: BASOPHILS % (AUTO) 1.3 % (0.0-5.0); EOSINOPHILS % (AUTO) 4.1 % (0.0-8.0); HEMATOCRIT 27.8 % (36-48); LYMPHOCYTES % (AUTO) 32.9 % (21.0-51.0); MEAN CORPUSCULAR HEMOGLOBIN 32.5 pg (27.0-33.0); MEAN CORPUSCULAR HGB CONC 32.7 g/dL (32.0-36.0); MEAN CORPUSCULAR VOLUME 99.3 fL (79-99); MONOCYTES % (AUTO) 15.3 % (3.0-13.0); NEUTROPHILS % (AUTO) 46.1 % (40.0-77.0); PLATELET COUNT (AUTO) 129 K/uL (130-400); RED CELL DISTRIBUTION WIDTH 17.1 % (11.0-15.5); WHITE BLOOD COUNT (AUTO) 6.3 K/uL (4.8-10.8)
[2021-03-15 15:29] LABS: CREATININE 0.6 mg/dL (0.5-1.5); POTASSIUM 3.7 mmol/L (3.5-5.1)
[2021-03-15 15:34] LABS: ALBUMIN 2.6 g/dL (3.5-5.0); BILIRUBIN,TOTAL 3.7 mg/dL (0.2-1.0); CRP QUANTITATIVE 4.8 mg/L (0.00-9.0); TOTAL PROTEIN, SERUM 7.5 g/dL (6.0-8.3)
[2021-03-15 16:37] LABS: APPEARANCE,URINE Cloudy (CLEAR); BILIRUBIN,URINE Negative (NEGATIVE); COLOR,URINE Yellow (YELLOW); GLUCOSE, URINE (UA) Negative (NEGATIVE); KETONES,URINE Negative (NEGATIVE); LEUKOCYTE ESTERASE ,URINE Large (NEGATIVE); NITRATE,URINE Negative (NEGATIVE); OCCULT BLOOD,URINE Negative (NEGATIVE); PH,URINE 6.5 (5.0-8.0); PROTEIN,URINE Negative (NEGATIVE)
[2021-03-15 16:51] LABS: BACTERIA,URINE Moderate /HPF (None Seen); MUCUS,URINE Few LPF (None Seen); SQUAMOUS EPITHELIAL CELL,UR 0-2 /HPF (0-2)
[2021-03-15] MEDS ORDERED: CEFTRIAXONE 1G VIAL IVP ONE (17:00)
[2021-03-15] MEDS ORDERED: CEPH500B PO (17:46)
[2021-03-15 18:00] VITALS: BP 122/65
== END 2021-03-15 18:13 | disposition home or self-care (01) ==
LOC: EDH 14:38
DX: N39.0 Urinary tract infection, site not specified (principal); E87.1 Hypo-osmolality and hyponatremia; D64.9 Anemia, unspecified; G89.18 Other acute postprocedural pain; N64.4 Mastodynia; Z20.822 Contact with and (suspected) exposure to COVID-19; Z79.899 Other long term (current) drug therapy; Z90.12 Acquired absence of left breast and nipple
CPT/HCPCS: 36415; 71045; 80053; 81001; 83605; 85025; 86140; 87040; 87077; 87088; 87186; 87635; 87804; 96361; 96374; C9803; J0696; J7030

== ENCOUNTER → 2021-03-30 | Outpatient (CLI) | payer MEDICAID ==
[~2021-03-30] MED LIST changes: +CEPH500B PO
== END | disposition home or self-care (01) ==
LOC: RAH 08:52
PROVIDERS: ATTEND Internal Medicine Hematology & Oncology
DX: I07.1 Rheumatic tricuspid insufficiency (principal); R55 Syncope and collapse; C50.812 Malignant neoplasm of overlapping sites of left female breast; K74.60 Unspecified cirrhosis of liver; G90.09 Other idiopathic peripheral autonomic neuropathy; D50.9 Iron deficiency anemia, unspecified; R00.2 Palpitations
CPT/HCPCS: 93306; 93356

== ENCOUNTER 2021-04-05 20:53 | Emergency (ER) | payer MEDICAID ==
[2021-04-05 21:19] VITALS: BP 109/51
[2021-04-05 21:54] LABS: BASOPHILS % (AUTO) 0.7 % (0.0-5.0); EOSINOPHILS % (AUTO) 0.4 % (0.0-8.0); HEMATOCRIT 23.8 % (36-48); LYMPHOCYTES % (AUTO) 20.5 % (21.0-51.0); MEAN CORPUSCULAR HEMOGLOBIN 32.8 pg (27.0-33.0); MEAN CORPUSCULAR HGB CONC 33.6 g/dL (32.0-36.0); MEAN CORPUSCULAR VOLUME 97.5 fL (79-99); PLATELET COUNT (AUTO) 97 K/uL (130-400); RED BLOOD CELL COUNT(AUTO) 2.44 MIL/uL (4.00-5.50); RED CELL DISTRIBUTION WIDTH 17.8 % (11.0-15.5); WHITE BLOOD COUNT (AUTO) 5.5 K/uL (4.8-10.8)
[2021-04-05] MEDS ORDERED: ACETAMINOPHEN 325 MG TAB ONE (21:54)
[2021-04-05 21:57] LABS: CREATININE 0.7 mg/dL (0.5-1.5); POTASSIUM 3.7 mmol/L (3.5-5.1)
[2021-04-05] MEDS ORDERED: ACETAMINOPHEN 325 MG TAB PO ONE (22:00)
[2021-04-05] MEDS ORDERED: 0.9%NACL 1000ML 1,000 ML IV ONE (22:00)
[2021-04-05 22:02] LABS: ALBUMIN 2.3 g/dL (3.5-5.0); BILIRUBIN,TOTAL 3.6 mg/dL (0.2-1.0); TOTAL PROTEIN, SERUM 6.7 g/dL (6.0-8.3)
[2021-04-05 22:07] LABS: INR 1.54 (0.85-1.15); PROTHROMBIN TIME 16.1 SEC (9.6-11.6)
[2021-04-05 22:08] LABS: PARTIAL THROMBOPLASTIN TIME 34.6 SEC (26.3-35.5)
[2021-04-05 22:16] LABS: B-TYPE NATRIURETIC PEPTIDE 116 pg/mL (0-100)
[2021-04-05] MEDS ORDERED: LEVOFLOXACIN 500 MG/D5W 100 ML 100 ML IV ONE (22:30)
[2021-04-05 22:58] VITALS: BP 112/57
[2021-04-05 23:01] LABS: APPEARANCE,URINE Turbid (CLEAR); BILIRUBIN,URINE Moderate (NEGATIVE); COLOR,URINE Orange (YELLOW); GLUCOSE, URINE (UA) Negative (NEGATIVE); KETONES,URINE Negative (NEGATIVE); LEUKOCYTE ESTERASE ,URINE Large (NEGATIVE); NITRATE,URINE Negative (NEGATIVE); OCCULT BLOOD,URINE Large (NEGATIVE); PH,URINE 5.5 (5.0-8.0); PROTEIN,URINE POS 1+ mg/dL (NEGATIVE)
[2021-04-05 23:19] LABS: RBC,URINE TNTC /HPF (0-1); WBC,URINE 51-100 /HPF (0-1)
[2021-04-05 23:20] LABS: BACTERIA,URINE Few /HPF (None Seen); TRICHOMONAS,URINE Few /LPF (None Seen)
[2021-04-05 23:24] LABS: SQUAMOUS EPITHELIAL CELL,UR Few /HPF (0-2)
[2021-04-05] MEDS ORDERED: CEFTRIAXONE 1G VIAL ONE (23:30)
[2021-04-05] MEDS ORDERED: CEFTRIAXONE 1G VIAL IVP ONE (23:30)
[2021-04-06] MEDS ORDERED: NITROFURANTOIN MONOHYD/M-CRYST 100 MG CAPSULE PO ONE
[2021-04-06 00:38] VITALS: BP 105/62
[2021-04-06] MEDS ORDERED: LEVAQUIN 500 MG PO (01:00)
[2021-04-06] MEDS ORDERED: MACR100 PO (01:00)
== END 2021-04-06 01:17 | disposition home or self-care (01) ==
LOC: EDH 20:53
DX: N39.0 Urinary tract infection, site not specified (principal); B95.2 Enterococcus as the cause of diseases classified elsewhere; Z20.822 Contact with and (suspected) exposure to COVID-19; I10 Essential (primary) hypertension; Z79.899 Other long term (current) drug therapy; Z85.3 Personal history of malignant neoplasm of breast; Z90.12 Acquired absence of left breast and nipple; Z92.21 Personal history of antineoplastic chemotherapy; Z95.0 Presence of cardiac pacemaker
CPT/HCPCS: 36415; 71045; 80053; 81001; 82140; 82550; 83605; 83880; 84145; 84484; 85025; 85610; 85730; 87040; 87077; 87088; 87186; 87635; 87804; 87880; 93005; 96361; 96365; 96368; 96375; C9803; J0696; J1956

== ENCOUNTER 2021-04-08 16:49 | Inpatient (IN) | payer MEDICAID ==
[~2021-04-08] VITALS: Ht 157.5 cm; Wt 58.2 kg
[~2021-04-08 16:49] MED LIST changes: +LEVAQUIN 500 MG PO; +MACR100 PO
[2021-04-08 17:28] LABS: HEMATOCRIT 25.3 % (36-48); MEAN CORPUSCULAR HEMOGLOBIN 32.4 pg (27.0-33.0); MEAN CORPUSCULAR HGB CONC 32.8 g/dL (32.0-36.0); MEAN CORPUSCULAR VOLUME 98.8 fL (79-99); PLATELET COUNT (AUTO) 92 K/uL (130-400); RED BLOOD CELL COUNT(AUTO) 2.56 MIL/uL (4.00-5.50); RED CELL DISTRIBUTION WIDTH 18.1 % (11.0-15.5); WHITE BLOOD COUNT (AUTO) 3.9 K/uL (4.8-10.8)
[2021-04-08 17:50] LABS: CREATININE 0.6 mg/dL (0.5-1.5); POTASSIUM 3.7 mmol/L (3.5-5.1)
[2021-04-08 17:54] LABS: ALBUMIN 2.4 g/dL (3.5-5.0); BILIRUBIN,DIRECT 1.9 mg/dL (0.0-0.3); BILIRUBIN,TOTAL 3.4 mg/dL (0.2-1.0)
[2021-04-08 18:40] LABS: BASOPHILS % (MANUAL) 2 % (0-2); EOSINOPHILS % (MANUAL) 7 % (1-6); LYMPHOCYTES % (MANUAL) 53 % (22-44); MONOCYTES % (MANUAL) 19 % (2-9); SEGMENTED NEUTROPHILS % 19 % (40-70)
[2021-04-08 18:41] LABS: MAN.DIFF COMMENT-IMPRESSION MANUAL DIFFERENTIAL
[2021-04-08 18:42] LABS: PLATELET MORPHOLOGY COMMENT DECREASED
[2021-04-08] MEDS ORDERED: ZOSYN 3.375GM+NS 50ML 50 ML ONE (18:50)
[2021-04-08 18:58] VITALS: BP 138/69
[2021-04-08] MEDS: ZOSYN 3.375GM+NS 50ML 50 ML IV SCH ×2 (19:00→20:06)
[2021-04-08 19:03] LABS: APPEARANCE,URINE Clear (CLEAR); BILIRUBIN,URINE Negative (NEGATIVE); COLOR,URINE Yellow (YELLOW); GLUCOSE, URINE (UA) Negative (NEGATIVE); KETONES,URINE Negative (NEGATIVE); LEUKOCYTE ESTERASE ,URINE Moderate (NEGATIVE); NITRATE,URINE Negative (NEGATIVE); OCCULT BLOOD,URINE Moderate (NEGATIVE); PROTEIN,URINE Negative (NEGATIVE)
[2021-04-08 19:14] LABS: BACTERIA,URINE Few /HPF (None Seen)
[2021-04-08 19:15] LABS: MUCUS,URINE Few LPF (None Seen); SQUAMOUS EPITHELIAL CELL,UR Few /HPF (0-2)
[2021-04-08 19:16] VITALS: BP 138/69
[2021-04-08] MEDS ORDERED: 0.9%NACL 1000ML 1,000 ML IV ONE (19:37)
[2021-04-08] MEDS ORDERED: IBUPROFEN 400 MG TABLET PO PRN (20:00)
[2021-04-08] MEDS: 0.9%NACL 1000ML 1,000 ML IV SCH (20:06)
[2021-04-08] MEDS: VANCOMYCIN 1G/250ML KIT 250 ML IV SCH (20:35)
[2021-04-08 21:14] VITALS: BP 136/63
[2021-04-08 22:05] VITALS: BP 126/65
[2021-04-09] VITALS (10 sets, daily range): BP systolic 108–137; BP diastolic 58–75
[2021-04-09] MEDS: ZOSYN 3.375GM+NS 50ML 50 ML IV SCH ×3 (03:14→19:54)
[2021-04-09] MEDS: 0.9%NACL 1000ML 1,000 ML IV SCH ×2 (06:45→19:21)
[2021-04-09 07:35] LABS: BASOPHILS % (AUTO) 1.4 % (0.0-5.0); EOSINOPHILS % (AUTO) 4.1 % (0.0-8.0); HEMATOCRIT 23.3 % (36-48); LYMPHOCYTES % (AUTO) 39.4 % (21.0-51.0); MEAN CORPUSCULAR HEMOGLOBIN 32.5 pg (27.0-33.0); MEAN CORPUSCULAR VOLUME 98.3 fL (79-99); MONOCYTES % (AUTO) 17.7 % (3.0-13.0); NEUTROPHILS % (AUTO) 37.1 % (40.0-77.0); PLATELET COUNT (AUTO) 90 K/uL (130-400); RED BLOOD CELL COUNT(AUTO) 2.37 MIL/uL (4.00-5.50); RED CELL DISTRIBUTION WIDTH 18.2 % (11.0-15.5); WHITE BLOOD COUNT (AUTO) 3.7 K/uL (4.8-10.8)
[2021-04-09 07:57] LABS: ALBUMIN 2.1 g/dL (3.5-5.0); BILIRUBIN,TOTAL 3.7 mg/dL (0.2-1.0); CREATININE 0.7 mg/dL (0.5-1.5); POTASSIUM 3.6 mmol/L (3.5-5.1); TOTAL PROTEIN, SERUM 6.2 g/dL (6.0-8.3)
[2021-04-09] MEDS ORDERED: 0.9%NACL 50ML 50 ML IV ONE ×2 (11:33→19:35)
[2021-04-09] MEDS ORDERED: ONDANSETRON 4MG INJ IVP PRN (12:30)
[2021-04-09] MEDS ORDERED: LACTULOSE 20 GM/30 ML UDCUP PO PRN (12:30)
[2021-04-09] MEDS ORDERED: 0.9%NACL 1000ML 1,000 ML IV SCH (12:30)
[2021-04-09] MEDS ORDERED: ACETAMINOPHEN 650 MG SUPPOSITORY RC PRN (12:30)
[2021-04-09] MEDS ORDERED: CLONIDINE HCL 0.1 MG TABLET PO PRN (12:30)
[2021-04-09] MEDS ORDERED: CHLORDIAZEPOXIDE HCL 25 MG CAP PO PRN (12:30)
[2021-04-09] MEDS ORDERED: M.V.I. IV [ADULT] 10 ML in 0.9%NACL 1000ML 1,000 ML IV SCH (12:30)
[2021-04-09] MEDS ORDERED: THIAMINE HCL 100 MG/ML 2ML VIAL IVP SCH (12:30)
[2021-04-09] MEDS ORDERED: LORAZEPAM 2 MG/ML 1 ML VIAL IVP PRN (12:30)
[2021-04-09] MEDS: ACETAMINOPHEN 325 MG TAB PO PRN (12:59)
[2021-04-09] MEDS ORDERED: [UNRECOGNIZED DRUG - OTHER] IV SCH (13:00)
[2021-04-09] MEDS ORDERED: THIAMINE HCL IV SCH (13:00)
[2021-04-09] MEDS ORDERED: M V I IV SCH (13:00)
[2021-04-09] MEDS ORDERED: FOLIC ACID IV SCH (13:00)
[2021-04-09] MEDS: VANCOMYCIN 1G/250ML KIT 250 ML IV SCH (22:20)
[2021-04-10] MEDS: 0.9%NACL 1000ML 1,000 ML IV SCH ×3 (02:00→21:54)
[2021-04-10] MEDS: ZOSYN 3.375GM+NS 50ML 50 ML IV SCH ×3 (02:42→18:36)
[2021-04-10 03:56] VITALS: BP 140/72
[2021-04-10 05:49] LABS: EOSINOPHILS % (AUTO) 4.5 % (0.0-8.0); HEMATOCRIT 22.6 % (36-48); LYMPHOCYTES % (AUTO) 38.8 % (21.0-51.0); MEAN CORPUSCULAR HEMOGLOBIN 32.9 pg (27.0-33.0); MEAN CORPUSCULAR HGB CONC 33.2 g/dL (32.0-36.0); MEAN CORPUSCULAR VOLUME 99.1 fL (79-99); MONOCYTES % (AUTO) 15.7 % (3.0-13.0); NEUTROPHILS % (AUTO) 39.8 % (40.0-77.0); PLATELET COUNT (AUTO) 85 K/uL (130-400); RED BLOOD CELL COUNT(AUTO) 2.28 MIL/uL (4.00-5.50); RED CELL DISTRIBUTION WIDTH 18.1 % (11.0-15.5)
[2021-04-10 06:09] LABS: CREATININE 0.7 mg/dL (0.5-1.5); MAGNESIUM 1.4 mg/dL (1.80-2.40); PHOSPHORUS 4.1 mg/dL (2.5-4.9); POTASSIUM 3.5 mmol/L (3.5-5.1)
[2021-04-10] MEDS ORDERED: MAGNESIUM 2GM PREMIX 50ML 50 ML IV ONE (06:23)
[2021-04-10] MEDS ORDERED: MAGNESIUM 2GM PREMIX 50ML 50 ML IV PRN (06:30)
[2021-04-10] MEDS: THIAMINE HCL 100 MG TABLET PO SCH (08:30)
[2021-04-10] MEDS: PANTOPRAZOLE 40 MG TAB DR PO SCH (08:30)
[2021-04-10 08:33] VITALS: BP 121/60
[2021-04-10] MEDS: ACETAMINOPHEN 325 MG TAB PO PRN ×2 (08:57→18:50)
[2021-04-10] MEDS ORDERED: IPRATROPIUM/ALBUTEROL SULFATE 3 ML SOLUTION IH PRN (09:30)
[2021-04-10 12:03] VITALS: BP 114/60
[2021-04-10] MEDS: M.V.I. IV [ADULT] 10 ML, THIAMINE HCL 100 MG, FOLIC ACID 1 MG in 0.9%NACL 1000ML 1,000 ML IV SCH (12:56)
[2021-04-10 16:34] VITALS: BP 117/61
[2021-04-10 19:55] VITALS: BP 113/71
[2021-04-10] MEDS ORDERED: 0.9% NACL 250ML 250 ML ONE (20:22)
[2021-04-10] MEDS: VANCOMYCIN 1G/250ML KIT 250 ML IV SCH (20:26)
[2021-04-10 23:15] VITALS: BP 129/59
[2021-04-11] MEDS: ZOSYN 3.375GM+NS 50ML 50 ML IV SCH ×3 (03:25→20:33)
[2021-04-11 03:55] VITALS: BP 138/79
[2021-04-11 07:26] LABS: CREATININE 0.7 mg/dL (0.5-1.5); MAGNESIUM 1.5 mg/dL (1.80-2.40); POTASSIUM 3.4 mmol/L (3.5-5.1)
[2021-04-11] MEDS ORDERED: SODIUM CHLORIDE 3% FOR INHALATION 4 ML/AMP VIAL.NEB IH ONE ×2 (07:28→22:52)
[2021-04-11 08:00] VITALS: BP 127/67
[2021-04-11] MEDS: 0.9%NACL 1000ML 1,000 ML IV SCH ×2 (08:00→18:00)
[2021-04-11] MEDS: M.V.I. IV [ADULT] 10 ML, THIAMINE HCL 100 MG, FOLIC ACID 1 MG in 0.9%NACL 1000ML 1,000 ML IV SCH (09:00)
[2021-04-11] MEDS: PANTOPRAZOLE 40 MG TAB DR PO SCH (09:33)
[2021-04-11] MEDS: THIAMINE HCL 100 MG TABLET PO SCH (09:33)
[2021-04-11] MEDS: TRAMADOL HCL 50 MG TABLET PO PRN ×2 (11:00→22:43)
[2021-04-11 14:09] LABS: INR 1.61 (0.85-1.15); PROTHROMBIN TIME 16.8 SEC (9.6-11.6)
[2021-04-11] MEDS ORDERED: KCL 20 MEQ ERTAB PO SCH (14:30)
[2021-04-11 16:00] VITALS: BP 126/63
[2021-04-11 20:17] VITALS: BP 126/65
[2021-04-11] MEDS ORDERED: 0.9% NACL 250ML 250 ML IV SCH (21:00)
[2021-04-11] MEDS ORDERED: VANCOMYCIN 1G/250ML KIT 250 ML IV SCH (21:00)
[2021-04-11 23:32] VITALS: BP 126/69
[2021-04-12] MEDS: ZOSYN 3.375GM+NS 50ML 50 ML IV SCH (02:45)
[2021-04-12] MEDS: 0.9%NACL 1000ML 1,000 ML IV SCH (03:50)
[2021-04-12 04:43] VITALS: BP 128/75
[2021-04-12 04:44] LABS: EOSINOPHILS % (AUTO) 5.5 % (0.0-8.0); HEMATOCRIT 22.5 % (36-48); LYMPHOCYTES % (AUTO) 36.8 % (21.0-51.0); MEAN CORPUSCULAR HGB CONC 32.9 g/dL (32.0-36.0); MEAN CORPUSCULAR VOLUME 100.4 fL (79-99); MONOCYTES % (AUTO) 16.8 % (3.0-13.0); NEUTROPHILS % (AUTO) 39.7 % (40.0-77.0); PLATELET COUNT (AUTO) 93 K/uL (130-400); RED BLOOD CELL COUNT(AUTO) 2.24 MIL/uL (4.00-5.50); RED CELL DISTRIBUTION WIDTH 18.3 % (11.0-15.5); WHITE BLOOD COUNT (AUTO) 5.1 K/uL (4.8-10.8)
[2021-04-12 04:52] LABS: CREATININE 0.7 mg/dL (0.5-1.5); POTASSIUM 3.4 mmol/L (3.5-5.1)
== END 2021-04-12 08:00 | disposition home or self-care (01) | DRG 720 ==
LOC: EDH 16:49 → EDHIP 16:50 → 3BH 04-09 21:16
PROVIDERS: ADMIT Internal Medicine Hematology & Oncology; ATTEND Internal Medicine Hematology & Oncology
DX: A41.9 Sepsis, unspecified organism (principal); E43 Unspecified severe protein-calorie malnutrition; D84.9 Immunodeficiency, unspecified; D61.810 Antineoplastic chemotherapy induced pancytopenia; D69.6 Thrombocytopenia, unspecified; E87.1 Hypo-osmolality and hyponatremia; E83.51 Hypocalcemia; E83.42 Hypomagnesemia; I27.20 Pulmonary hypertension, unspecified; N39.0 Urinary tract infection, site not specified; K70.30 Alcoholic cirrhosis of liver without ascites; D64.9 Anemia, unspecified; B95.2 Enterococcus as the cause of diseases classified elsewhere; F10.10 Alcohol abuse, uncomplicated; Z16.21 Resistance to vancomycin; I10 Essential (primary) hypertension; Z20.822 Contact with and (suspected) exposure to COVID-19; Z85.3 Personal history of malignant neoplasm of breast; Z87.440 Personal history of urinary (tract) infections; Z90.12 Acquired absence of left breast and nipple; Z90.710 Acquired absence of both cervix and uterus; Z80.3 Family history of malignant neoplasm of breast; E87.6 Hypokalemia
CPT/HCPCS: 36415; 71045; 76700; 80048; 80053; 80076; 80202; 81001; 82140; 82270; 82550; 83605; 83735; 83880; 84100; 84145; 84484; 85025; 85610; 85730; 87040; 87077; 87088; 87186; 87635; 87804; 87880; 93005; 93970; 94640; 94664; 96361; 96365; 96368; 96375; C9803; G0378; J0696; J1956; J2543; J3370; J3411; J3475; J3490; J7030; J7050

== ENCOUNTER 2021-04-20 08:37 | Day surgery (SDC) | payer MEDICAID ==
[2021-04-19 14:41] LABS: INR 1.55 (0.85-1.15); PROTHROMBIN TIME 16.2 SEC (9.6-11.6)
[2021-04-19 14:42] LABS: PARTIAL THROMBOPLASTIN TIME 32.8 SEC (26.3-35.5)
[2021-04-19 15:35] VITALS: BP 134/66
[~2021-04-20] VITALS: Ht 157.5 cm; Wt 53.1 kg
[2021-04-20 09:15] VITALS: BP 124/55
[2021-04-20] MEDS ORDERED: 0.9%NACL 1000ML 1,000 ML IV ONE (09:51)
[2021-04-20] MEDS ORDERED: HEPARIN 1,000 UNIT VIAL ONE (10:02)
[2021-04-20] MEDS ORDERED: IODIXANOL 320 MG/ML 100 ML VIAL ONE (10:02)
[2021-04-20] MEDS ORDERED: LIDOCAINE HCL 1% MDV 50ML VIAL ONE (10:02)
[2021-04-20] MEDS ORDERED: MIDAZOLAM HCL 1 MG/ML 2ML VIAL ONE (10:39)
[2021-04-20] MEDS ORDERED: OCTYL 2-CYANOACRYLATE 1 EACH TP ONE (10:54)
[2021-04-20 11:12] VITALS: BP 128/64
== END 2021-04-20 12:10 | disposition home or self-care (01) ==
LOC: DAH 08:37
PROVIDERS: ATTEND Internal Medicine Hematology & Oncology
DX: Z51.11 Encounter for antineoplastic chemotherapy (principal); R18.8 Other ascites; K74.60 Unspecified cirrhosis of liver; F41.9 Anxiety disorder, unspecified; G47.00 Insomnia, unspecified; D69.6 Thrombocytopenia, unspecified; F33.0 Major depressive disorder, recurrent, mild; I12.9 Hypertensive chronic kidney disease with stage 1 through stage 4 chronic kidney disease, or unspecified chronic kidney disease; N18.9 Chronic kidney disease, unspecified; Z87.891 Personal history of nicotine dependence; Z79.899 Other long term (current) drug therapy; Z85.3 Personal history of malignant neoplasm of breast; Z79.01 Long term (current) use of anticoagulants
CPT/HCPCS: 36415; 36561; 77001; 85610; 85730; 99156; 99157; J1644; J2250; J3490; J7030; Q9967

== ENCOUNTER → 2021-07-19 | Outpatient (CLI) | payer MEDICAID | END | disposition home or self-care (01) | LOC: RAH 15:24 | PROVIDERS: ATTEND Family Medicine | DX: R60.9 Edema, unspecified (principal) | CPT/HCPCS: 93970 ==